=== PATIENT | female | born 1980 | race Caucasian/White ===

== ENCOUNTER 2020-07-09 14:36 | Observation (INO) | payer BC, OTHER ==
--- NOTE | 2020-07-09 14:40 | ERPHSYRPT ---
- History of Present Illness Time Seen by Provider: 07/09/20 14:40 Historian: patient Exam Limitations: no limitations Physician History: This is a 40-year-old white female with a history of left ovarian cyst in the past requiring surgical intervention and presents with left-sided abdominal pain. Patient states that she is about ready to start her menstrual period. P attrevor has nausea but no vomiting. She is also had some diarrhea in the last week. Patient states the pain was present intermittently during the last week but then yesterday and today the pain is more significant and now more constant and localized without radiation. She had no vaginal bleeding. She has no chest pain she has no shortness of breath. She has had no dysuria and no flank pain. Patient states that she is allergic to codeine but she does not recall the allergy she has to codeine. She has had intravenous narcotics in the past but she does not recall the type and she did not have any problems with that medication. Patient has had no other intra-abdominal or pelvic surgeries. Timing/Duration: week(s) (1), worse Activities at Onset: none Quality: sharpness, stabbing Abdominal Pain Onset Location: LLQ, suprapubic (Left) Pain Radiation: no radiation Severity of Pain-Max: moderate Severity of Pain-Current: moderate Modifying Factors: Improves With: nothing Associated Symptoms: diarrhea, nausea Previous symptoms: no prior history Allergies/Adverse Reactions: codeine Allergy (Unknown, Verified 07/09/20 14:48) Travel Risk - International Travel Have you traveled outside of the country in past 3 weeks: No - Coronavirus Screening Are you exhibiting any of the following symptoms?: No Close contact with a COVID-19 positive Pt in past 14-21 Days: No - Review of Systems Constitutional: No Symptoms Eyes: No Symptoms Ears, Nose, & Throat: No Symptoms Respiratory: No Symptoms Cardiac: No Symptoms Abdominal/Gastrointestinal: Abdominal Pain (Left lower quadrant/left suprapubic), Nausea, Diarrhea Genitourinary Symptoms: No Symptoms Musculoskeletal: No Symptoms Skin: No Symptoms Neurological: No Symptoms Psychological: No Symptoms Endocrine: No Symptoms Hematologic/Lymphatic: No Symptoms Immunological/Allergic: No Symptoms All Other Systems: Reviewed and Negative - Past Medical History Pertinent Past Medical History: Yes - Past Surgical History Past Surgical History: Yes - Nursing Vital Signs Nursing Vital Signs: Initial Vital Signs Temperature 98.7 F 07/09/20 14:36 Pulse Rate 92 H 07/09/20 14:36 Respiratory Rate 20 07/09/20 14:36 Blood Pressure 166/107 07/09/20 14:36 O2 Sat by Pulse Oximetry 99 07/09/20 14:36 Pain Scale Pain Intensity 8 - Physical Exam General Appearance: mild distress, alert, anxiety Eye Exam: PERRL/EOMI, eyes nml inspection Ears, Nose, Throat Exam: normal ENT inspection, moist mucous membranes Neck Exam: normal inspection, non-tender, supple, full range of motion Respiratory Exam: normal breath sounds, lungs clear, airway intact, No chest tenderness, No respiratory distress Cardiovascular Exam: regular rate/rhythm, normal heart sounds, normal peripheral pulses Gastrointestinal/Abdomen Exam: soft, normal bowel sounds, tenderness (Left lower quadrant), guarding (Left lower quadrant) Pelvic Exam: not done Rectal Exam: not done Back Exam: normal inspection, normal range of motion, No CVA tenderness, No vertebral tenderness Extremity Exam: normal inspection, normal range of motion, pelvis stable Neurologic Exam: alert, oriented x 3, cooperative, golf course starter II-XII nml as tested, normal mood/affect, nml cerebellar function, sensation nml Skin Exam: normal color, warm, dry Lymphatic Exam: No adenopathy SpO2 Interpretation: normal O2 Delivery: Room Air - Course Nursing assessment & vital signs reviewed: Yes Ordered Tests: Active Orders 24 hr Category Date Time Status IV Insertion STAT Care 07/09/20 15:00 Active ABDOMEN AND PELVIS W/0 CONTRAS [CT] Stat Exams 07/09/20 15:01 Completed AMYLASE Stat Lab 07/09/20 15:15 Completed CBC W DIFF Stat Lab 07/09/20 15:00 Completed CMP Stat Lab 07/09/20 15:15 Completed HCG,QUALITATIVE URINE Stat Lab 07/09/20 15:08 Completed LIPASE Stat Lab 07/09/20 15:15 Completed Lactic Acid Stat Lab 07/09/20 15:06 Completed UA W/RFX UR CULTURE Stat Lab 07/09/20 15:08 Completed Transfer Order Routine Transfer 07/09/20 Ordered Medication Summary Discontinued Medications Generic Name Dose Route Start Last Admin Trade Name Freq PRN Reason Stop Dose Admin Hydromorphone HCl 1 mg 07/09/20 15:00 07/09/20 15:08 Hydromorphone 1 Mg/Ml Injection IV 07/09/20 15:01 1 mg STAT ONE Administration Hydromorphone HCl Confirm 07/09/20 15:07 Hydromorphone 1 Mg/Ml Injection Administered 07/09/20 15:08 Dose 1 mg .ROUTE .STK-MED ONE Sodium Chloride 1,000 mls @ 999 mls/hr 07/09/20 15:00 07/09/20 16:04 Sodium Chloride 0.9% 1000 Ml IV 07/09/20 16:00 Infused .Q1H1M STA Infusion Sodium Chloride Confirm 07/09/20 15:07 Sodium Chloride 0.9% 1000 Ml Administered 07/09/20 15:08 Dose 1,000 mls @ ud .ROUTE .STK-MED ONE Levofloxacin 500 mg 07/09/20 16:43 07/09/20 17:31 Levofloxacin 500 Mg Tablet PO 07/09/20 16:44 500 mg STAT ONE Administration Levofloxacin Confirm 07/09/20 17:30 Levofloxacin 500 Mg Tablet Administered 07/09/20 17:31 Dose 500 mg .ROUTE .STK-MED ONE Metronidazole 500 mg 07/09/20 16:43 07/09/20 17:31 Flagyl 500 Mg PO 07/09/20 16:44 500 mg STAT ONE Administration Metronidazole Confirm 07/09/20 17:30 Flagyl 500 Mg Administered 07/09/20 17:31 Dose 500 mg .ROUTE .STK-[facility] ONE Ondansetron HCl 4 mg 07/09/20 15:00 07/09/20 15:09 Zofran 4 Mg/2 Ml Vial IV 07/09/20 15:01 4 mg STAT ONE Administration Ondansetron HCl Confirm 07/09/20 15:07 Zofran 4 Mg/2 Ml Vial Administered 07/09/20 15:08 Dose 4 mg .ROUTE .ST-[facility] ONE Lab/Rad Data: Laboratory Result Diagrams 07/09/20 15:00 07/09/20 15:15 Laboratory Results 07/09/20 07/09/20 07/09/20 Range/Units 15:15 15:08 15:08 WBC (4.0-10.5) K/mm3 RBC (4.1-5.4) M/mm3 Hgb (12.0-16.0) gm/dl Hct (35-47) % MCV (78-100) fl MCH (26-32) pg MCHC (32-36) g/dl RDW (11.5-14.0) % Plt Count (150-450) K/mm3 MPV (7.5-11.0) fl Gran % (36.0-66.0) % Eos # (Auto) (0-0.5) Absolute Lymphs (auto) (1.0-4.6) Absolute Monos (auto) (0.0-1.3) Lymphocytes % (24.0-44.0) % Monocytes % (0.0-12.0) % Eosinophils % (0.00-5.0) % Basophils % (0.0-0.4) % Absolute Granulocytes (1.4-6.9) Basophils # (0-0.4) Sodium 137 (137-145) mmol/L Potassium 3.8 (3.5-5.1) mmol/L Chloride 103 (98-107) mmol/L Carbon Dioxide 25 (22-30) mmol/L Anion Gap 12.7 (5-15) MEQ/L BUN 5 L (7-17) mg/dL Creatinine 0.68 (0.52-1.04) mg/dL Estimated GFR > 60.0 ML/MIN Glucose 95 (74-106) mg/dL Lactic Acid (0.4-2.0) Calcium 9.3 (8.4-10.2) mg/dL Total Bilirubin 0.70 (0.2-1.3) mg/dL AST 28 (14-36) U/L ALT 20 (0-35) U/L Alkaline Phosphatase 59 (38-126) U/L Serum Total Protein 7.7 (6.3-8.2) g/dL Albumin 4.4 (3.5-5.0) g/dL Amylase 55 (30-110) U/L Lipase 68 (23-300) U/L Urine Color YELLOW (YELLOW) Urine Appearance SLIGHTLY CLOUDY (CLEAR) Urine pH 5.0 (5-6) Ur Specific [place] 1.017 (1.005-1.025) Urine Protein NEGATIVE (Negative) Urine Ketones SMALL (NEGATIVE) Urine Blood MODERATE (0-5) Marcelo/ul Urine Nitrite NEGATIVE (NEGATIVE) Urine Bilirubin NEGATIVE (NEGATIVE) Urine Urobilinogen NEGATIVE (0-1) mg/dL Ur Leukocyte Esterase NEGATIVE (NEGATIVE) Urine WBC (Auto) NONE (0-5) /HPF Urine RBC (Auto) NONE (0-2) /HPF U Epithel Cells (Auto) RARE (FEW) /HPF Urine Bacteria (Auto) NONE (NEGATIVE) /HPF Urine Mucus (Auto) SLIGHT (NEGATIVE) /HPF Urine Culture Reflexed NO (NO) Urine Glucose NEGATIVE (NEGATIVE) mg/dL Urine HCG, Qual NEGATIVE (Negative) Slides for Path Review 07/09/20 07/09/20 Range/Units 15:06 15:00 WBC 22.4 H (4.0-10.5) K/mm3 RBC 5.09 (4.1-5.4) M/mm3 Hgb 15.7 (12.0-16.0) gm/dl Hct 47.6 H (35-47) % MCV 93.5 (78-100) fl MCH 30.8 (26-32) pg MCHC 33.0 (32-36) g/dl RDW 12.3 (11.5-14.0) % Plt Count 363 (150-450) K/mm3 MPV 9.0 (7.5-11.0) fl Gran % 79.7 H (36.0-66.0) % Eos # (Auto) 0.13 (0-0.5) Absolute Lymphs (auto) 1.61 (1.0-4.6) Absolute Monos (auto) 2.80 H (0.0-1.3) Lymphocytes % 7.2 L (24.0-44.0) % Monocytes % 12.5 H (0.0-12.0) % Eosinophils % 0.6 (0.00-5.0) % Basophils % 0.0 (0.0-0.4) % Absolute Granulocytes 17.82 H (1.4-6.9) Basophils # 0.01 (0-0.4) Sodium (137-145) mmol/L Potassium (3.5-5.1) mmol/L Chloride (98-107) mmol/L Carbon Dioxide (22-30) mmol/L Anion Gap (5-15) MEQ/L BUN (7-17) mg/dL Creatinine (0.52-1.04) mg/dL Estimated GFR ML/MIN Glucose (74-106) mg/dL Lactic Acid 1.0 (0.4-2.0) Calcium (8.4-10.2) mg/dL Total Bilirubin (0.2-1.3) mg/dL AST (14-36) U/L ALT (0-35) U/L Alkaline Phosphatase (38-126) U/L Serum Total Protein (6.3-8.2) g/dL Albumin (3.5-5.0) g/dL Amylase (30-110) U/L Lipase (23-300) U/L Urine Color (YELLOW) Urine Appearance (CLEAR) Urine pH (5-6) Ur Specific [place] (1.005-1.025) Urine Protein (Negative) Urine Ketones (NEGATIVE) Urine Blood (0-5) Marcelo/ul Urine Nitrite (NEGATIVE) Urine Bilirubin (NEGATIVE) Urine Urobilinogen (0-1) mg/dL Ur Leukocyte Esterase (NEGATIVE) Urine WBC (Auto) (0-5) /HPF Urine RBC (Auto) (0-2) /HPF U Epithel Cells (Auto) (FEW) /HPF Urine Bacteria (Auto) (NEGATIVE) /HPF Urine Mucus (Auto) (NEGATIVE) /HPF Urine Culture Reflexed (NO) Urine Glucose (NEGATIVE) mg/dL Urine HCG, Qual (Negative) Slides for Path Review YES - Progress Progress: improved, pain not gone completely, re-examined Progress Note: 07/09/20 17:15 CAT scan of the abdomen and pelvis shows diffuse colitis. There is no walled off fluid collection or complications. Counseled pt/family regarding: lab results, diagnosis, rad results - Departure Departure Disposition: Observation Clinical Impression: Colitis Condition: Stable Critical Care Time: No Referrals: Provider,Unknown [Family Provider] -
[2020-07-09] MEDS ORDERED: Zofran 4 MG/2 ML VIAL IV ONE (15:00)
[2020-07-09] MEDS ORDERED: Hydromorphone 1 mg/ml Injection IV ONE (15:00)
[2020-07-09] MEDS ORDERED: Sodium Chloride 0.9% 1000 ML 1,000 ML IV STA (15:00)
[2020-07-09] MEDS ORDERED: Sodium Chloride 0.9% 1000 ML 1,000 ML ONE (15:07)
[2020-07-09] MEDS ORDERED: Zofran 4 MG/2 ML VIAL ONE (15:07)
[2020-07-09] MEDS ORDERED: Hydromorphone 1 mg/ml Injection ONE (15:07)
[2020-07-09 15:17] LABS: Absolute Neutrophil Ct (ANC) 17.82 (1.4-6.9); Basophil (Absolute #) 0.01 (0-0.4); Eosinophil % 0.6 % (0.00-5.0); Eosinophil (Absolute #) 0.13 (0-0.5); Hematocrit 47.6 % (35-47); Hemoglobin 15.7 gm/dl (12.0-16.0); Lymphocyte (Absolute #) 1.61 (1.0-4.6); Lymphocytes % 7.2 % (24.0-44.0); Mean Cell Volume 93.5 fl (78-100); Mean Corpuscular Hemoglobin 30.8 pg (26-32); Monocytes % 12.5 % (0.0-12.0); Neutrophil % 79.7 % (36.0-66.0); Platelet Count 363 K/mm3 (150-450); Red Blood Count 5.09 M/mm3 (4.1-5.4); Red Cell Distribution Width 12.3 % (11.5-14.0); White Blood Count 22.4 K/mm3 (4.0-10.5)
[2020-07-09 15:25] LABS: Appearance SLIGHTLY CLOUDY (CLEAR); Bilirubin NEGATIVE (NEGATIVE); Blood MODERATE Ery/ul (0-5); Epithelial Cells RARE /HPF (FEW); Glucose NEGATIVE (NEGATIVE); Ketones SMALL (NEGATIVE); Leukocyte Esterase NEGATIVE (NEGATIVE); Mucus SLIGHT /HPF (NEGATIVE); Nitrite NEGATIVE (NEGATIVE); Protein,Urine Dip NEGATIVE (Negative); Specific Gravity 1.017 (1.005-1.025); Urobilinogen NEGATIVE mg/dL (0-1)
[2020-07-09 15:31] LABS: ALBUMIN 4.4 g/dL (3.5-5.0); ALKALINE PHOSPHATASE 59 U/L (38-126); AMYLASE 55 U/L (30-110); ANION GAP 12.7 MEQ/L (5-15); BLOOD UREA NITROGEN 5 mg/dL (7-17); CHLORIDE 103 mmol/L (98-107); Calcium 9.3 mg/dL (8.4-10.2); Carbon Dioxide 25 mmol/L (22-30); Creatinine 1 0.68 mg/dL (0.52-1.04); EST GLOMERULAR FILTRATION RATE > 60.0 ML/MIN; Glucose 95 mg/dL (74-106); LIPASE 68 U/L (23-300); Potassium 3.8 mmol/L (3.5-5.1); SGOT/AST 28 U/L (14-36); SGPT/ALT 20 U/L (0-35); SODIUM 137 mmol/L (137-145); Total Protein 7.7 g/dL (6.3-8.2)
[2020-07-09 15:53] LABS: Slide Review 1 YES
--- NOTE | 2020-07-09 16:25 | XRAY ---
Indication: Left lower quadrant pain. Multiple contiguous axial images obtained through the abdomen and pelvis without contrast as ordered. Comparison: None Lung bases demonstrates tiny left costophrenic angle calcified granuloma. No infiltrate or effusion. Heart is not enlarged. Noncontrasted stomach and bowel loops appear nonobstructed. Colon demonstrates moderate diffuse circumferential wall thickening with minimal pericolonic stranding favoring colitis. Tiny cul-de-sac fluid presumed physiologic from rupture/leaking cyst. No free air. Remaining liver, gallbladder, pancreas, spleen, adrenal glands, kidneys, ureters, bladder, uterus, and aorta appear unremarkable for noncontrast exam. Osseous structures intact. Impression: 1. Diffuse colitis. No walled off fluid collection or complications. 2. Tiny cul-de-sac physiologic fluid.
[2020-07-09] MEDS ORDERED: Levofloxacin 500 MG Tablet PO ONE (16:43)
[2020-07-09] MEDS ORDERED: Flagyl 500 MG PO ONE (16:43)
[2020-07-09] MEDS ORDERED: Flagyl 500 MG ONE (17:30)
[2020-07-09] MEDS ORDERED: Levofloxacin 500 MG Tablet ONE (17:30)
[2020-07-09] MEDS ORDERED: TYLENOL 325 MG PO PRN (18:27)
[2020-07-09] MEDS: Hydromorphone 1 mg/ml Injection IV PRN ×2 (18:33→22:11)
[2020-07-09] MEDS: Sodium Chloride 0.9% 1000 ML 1,000 ML IV SCH (18:33)
[2020-07-09] MEDS: Zofran 4 MG/2 ML VIAL IV PRN ×2 (18:43→22:12)
[2020-07-09] MEDS ORDERED: xanAX 0.5 MG PO PRN (20:02)
[2020-07-09] MEDS ORDERED: Wellbutrin SR 150 MG ONE (22:07)
[2020-07-09] MEDS: Wellbutrin XL 150 MG PO SCH (22:13)
[2020-07-10] MEDS: FLAGYL 500 MG IVPB 500 MG/100 ML BAG IV SCH ×5 (00:10→23:24)
[2020-07-10] MEDS: Hydromorphone 1 mg/ml Injection IV PRN ×4 (04:50→21:43)
[2020-07-10] MEDS: Zofran 4 MG/2 ML VIAL IV PRN ×4 (04:50→21:43)
[2020-07-10] MEDS: Sodium Chloride 0.9% 1000 ML 1,000 ML IV SCH (04:51)
[2020-07-10 05:32] LABS: Absolute Neutrophil Ct (ANC) 13.55 (1.4-6.9); BASOPHIL % 0.1 % (0.0-0.4); Basophil (Absolute #) 0.01 (0-0.4); Eosinophil (Absolute #) 0.17 (0-0.5); Hematocrit 39.9 % (35-47); Hemoglobin 12.9 gm/dl (12.0-16.0); Lymphocytes % 8.6 % (24.0-44.0); Mean Corpuscular Hemoglobin 30.7 pg (26-32); Mean Corpuscular Hgb Concent. 32.3 g/dl (32-36); Mean Platelet Volume 8.9 fl (7.5-11.0); Monocyte (Absolute #) 2.12 (0.0-1.3); Monocytes % 12.2 % (0.0-12.0); Neutrophil % 78.1 % (36.0-66.0); Platelet Count 293 K/mm3 (150-450); Red Cell Distribution Width 12.3 % (11.5-14.0); White Blood Count 17.4 K/mm3 (4.0-10.5)
[2020-07-10 06:09] LABS: ANION GAP 7.3 MEQ/L (5-15); BLOOD UREA NITROGEN 4 mg/dL (7-17); CHLORIDE 104 mmol/L (98-107); Carbon Dioxide 25 mmol/L (22-30); Creatinine 1 0.66 mg/dL (0.52-1.04); EST GLOMERULAR FILTRATION RATE > 60.0 ML/MIN; Glucose 102 mg/dL (74-106); Potassium 3.3 mmol/L (3.5-5.1); SODIUM 133 mmol/L (137-145)
[2020-07-10 06:26] LABS: Calcium 7.8 mg/dL (8.4-10.2)
--- NOTE | 2020-07-10 09:07 | PCM.HP ---
History of Present Illness - Chief Complaint Chief Complaint: Colitis History of Present Illness: is a 40 year old female who came to the ER yesterday, she has had a 1 week history of abdominal pain with diarrhea, nausea but no vomiting. Complains of headache and neck pain as well, no history of prior abd problems, had a fibroid removed but no other abd surgeries. no personal or family history of IBD. - Review of Systems Constitutional: No Fever, No Chills Respiratory: No Cough, No Short Of Breath Cardiac: No Chest Pain, No Edema, No Syncope Abdominal/Gastrointestinal: Abdominal Pain, Nausea, Diarrhea, No Vomiting Skin: No Rash Neurological: No Dizziness, No Focal Weakness, No Sensory Changes All Other Systems: Reviewed and Negative Medications & Allergies Home Medications: Home Medication List ALPRAZolam [Alprazolam] 0.5 mg PO TID PRN 07/09/20 [History Confirmed 07/09/20] Bupropion HCl Xl 150 mg [Wellbutrin XL 150 MG] 150 mg PO HS 07/09/20 [History Confirmed 07/09/20] Allergies/Adverse Reactions: Allergies Allergy/AdvReac Type Severity Reaction Status Date / Time codeine Allergy Unknown Verified 07/09/20 18:30 - Past Medical History Past Medical History: Yes Neurological History: No Pertinent History ENT History: No Pertinent History Cardiac History: No Pertinent History Respiratory History: No Pertinent History Endocrine Medical History: No Pertinent History Musculoskelatal History: No Pertinent History GI Medical History: No Pertinent History History: No Pertinent History Pyscho-Social History: Anxiety Reproductive Disorders: Fibroids - Female History Hx Last Menstrual Period: May Are you now?: No - Past Surgical History Past Surgical History: Yes Neuro Surgical History: No Pertinent History Cardiac History: No Pertinent History Respiratory Surgery: No Pertinent History GI Surgical History: No Pertinent History Genitourinary Surgical Hx: No Pertinent History Musculskeletal Surgical Hx: No Pertinent History Female Surgical History: Other Other Surgical History: left ovarian cyst removal 2019 - Social History Smoking Status: Never smoker Exposure to second hand smoke: No Alcohol: Weekly Drug Use: none - Physical Exam Vital Signs: Vital Signs - 24 hr Temp Pulse Resp BP Pulse Ox 07/10/20 07:05 98 F 83 16 130/74 96 07/10/20 04:00 98.1 F 92 H 20 129/93 97 07/10/20 00:00 98.1 F 90 18 114/68 97 07/09/20 20:00 99.4 F 90 16 147/83 98 07/09/20 19:45 99.4 F 90 16 147/83 98 07/09/20 18:27 98 07/09/20 17:40 85 18 143/92 100 07/09/20 14:36 98.7 F 92 H 20 166/107 99 General Appearance: mild distress, alert Neurologic Exam: alert, oriented x 3, cooperative Respiratory Exam: normal breath sounds, lungs clear, No respiratory distress Cardiovascular Exam: regular rate/rhythm, normal heart sounds, normal peripheral pulses Gastrointestinal/Abdomen Exam: soft, tenderness (lower midline and LLQ), No guarding, No rebound Extremity Exam: normal inspection, normal range of motion, pelvis stable Skin Exam: normal color, warm, dry, No rash Results - Labs Lab/Micro Results: Lab Results-Last 24 Hours 07/09/20 07/09/20 07/09/20 Range/Units 15:00 15:06 15:08 WBC 22.4 H (4.0-10.5) K/mm3 RBC 5.09 (4.1-5.4) M/mm3 Hgb 15.7 (12.0-16.0) gm/dl Hct 47.6 H (35-47) % MCV 93.5 (78-100) fl MCH 30.8 (26-32) pg MCHC 33.0 (32-36) g/dl RDW 12.3 (11.5-14.0) % Plt Count 363 (150-450) K/mm3 MPV 9.0 (7.5-11.0) fl Gran % 79.7 H (36.0-66.0) % Eos # (Auto) 0.13 (0-0.5) Absolute Lymphs (auto) 1.61 (1.0-4.6) Absolute Monos (auto) 2.80 H (0.0-1.3) Lymphocytes % 7.2 L (24.0-44.0) % Monocytes % 12.5 H (0.0-12.0) % Eosinophils % 0.6 (0.00-5.0) % Basophils % 0.0 (0.0-0.4) % Absolute Granulocytes 17.82 H (1.4-6.9) Basophils # 0.01 (0-0.4) Sodium (137-145) mmol/L Potassium (3.5-5.1) mmol/L Chloride (98-107) mmol/L Carbon Dioxide (22-30) mmol/L Anion Gap (5-15) MEQ/L BUN (7-17) mg/dL Creatinine (0.52-1.04) mg/dL Estimated GFR ML/MIN Glucose (74-106) mg/dL Lactic Acid 1.0 (0.4-2.0) Calcium (8.4-10.2) mg/dL Total Bilirubin (0.2-1.3) mg/dL AST (14-36) U/L ALT (0-35) U/L Alkaline Phosphatase (38-126) U/L Serum Total Protein (6.3-8.2) g/dL Albumin (3.5-5.0) g/dL Amylase (30-110) U/L Lipase (23-300) U/L Urine Color YELLOW (YELLOW) Urine Appearance SLIGHTLY CLOUDY (CLEAR) Urine pH 5.0 (5-6) Ur Specific [place] 1.017 (1.005-1.025) Urine Protein NEGATIVE (Negative) Urine Ketones SMALL (NEGATIVE) Urine Blood MODERATE (0-5) Marcelo/ul Urine Nitrite NEGATIVE (NEGATIVE) Urine Bilirubin NEGATIVE (NEGATIVE) Urine Urobilinogen NEGATIVE (0-1) mg/dL Ur Leukocyte Esterase NEGATIVE (NEGATIVE) Urine WBC (Auto) NONE (0-5) /HPF Urine RBC (Auto) NONE (0-2) /HPF U Epithel Cells (Auto) RARE (FEW) /HPF Urine Bacteria (Auto) NONE (NEGATIVE) /HPF Urine Mucus (Auto) SLIGHT (NEGATIVE) /HPF Urine Culture Reflexed NO (NO) Urine Glucose NEGATIVE (NEGATIVE) mg/dL Urine HCG, Qual (Negative) Slides for Path Review YES 07/09/20 07/09/20 07/10/20 Range/Units 15:08 15:15 05:05 WBC 17.4 H (4.0-10.5) K/mm3 RBC 4.20 (4.1-5.4) M/mm3 Hgb 12.9 (12.0-16.0) gm/dl Hct 39.9 (35-47) % MCV 95.0 (78-100) fl MCH 30.7 (26-32) pg MCHC 32.3 (32-36) g/dl RDW 12.3 (11.5-14.0) % Plt Count 293 (150-450) K/mm3 MPV 8.9 (7.5-11.0) fl Gran % 78.1 H (36.0-66.0) % Eos # (Auto) 0.17 (0-0.5) Absolute Lymphs (auto) 1.50 (1.0-4.6) Absolute Monos (auto) 2.12 H (0.0-1.3) Lymphocytes % 8.6 L (24.0-44.0) % Monocytes % 12.2 H (0.0-12.0) % Eosinophils % 1.0 (0.00-5.0) % Basophils % 0.1 (0.0-0.4) % Absolute Granulocytes 13.55 H (1.4-6.9) Basophils # 0.01 (0-0.4) Sodium 137 (137-145) mmol/L Potassium 3.8 (3.5-5.1) mmol/L Chloride 103 (98-107) mmol/L Carbon Dioxide 25 (22-30) mmol/L Anion Gap 12.7 (5-15) MEQ/L BUN 5 L (7-17) mg/dL Creatinine 0.68 (0.52-1.04) mg/dL Estimated GFR > 60.0 ML/MIN Glucose 95 (74-106) mg/dL Lactic Acid (0.4-2.0) Calcium 9.3 (8.4-10.2) mg/dL Total Bilirubin 0.70 (0.2-1.3) mg/dL AST 28 (14-36) U/L ALT 20 (0-35) U/L Alkaline Phosphatase 59 (38-126) U/L Serum Total Protein 7.7 (6.3-8.2) g/dL Albumin 4.4 (3.5-5.0) g/dL Amylase 55 (30-110) U/L Lipase 68 (23-300) U/L Urine Color (YELLOW) Urine Appearance (CLEAR) Urine pH (5-6) Ur Specific [place] (1.005-1.025) Urine Protein (Negative) Urine Ketones (NEGATIVE) Urine Blood (0-5) Marcelo/ul Urine Nitrite (NEGATIVE) Urine Bilirubin (NEGATIVE) Urine Urobilinogen (0-1) mg/dL Ur Leukocyte Esterase (NEGATIVE) Urine WBC (Auto) (0-5) /HPF Urine RBC (Auto) (0-2) /HPF U Epithel Cells (Auto) (FEW) /HPF Urine Bacteria (Auto) (NEGATIVE) /HPF Urine Mucus (Auto) (NEGATIVE) /HPF Urine Culture Reflexed (NO) Urine Glucose (NEGATIVE) mg/dL Urine HCG, Qual NEGATIVE (Negative) Slides for Path Review 07/10/20 Range/Units 05:05 WBC (4.0-10.5) K/mm3 RBC (4.1-5.4) M/mm3 Hgb (12.0-16.0) gm/dl Hct (35-47) % MCV (78-100) fl MCH (26-32) pg MCHC (32-36) g/dl RDW (11.5-14.0) % Plt Count (150-450) K/mm3 MPV (7.5-11.0) fl Gran % (36.0-66.0) % Eos # (Auto) (0-0.5) Absolute Lymphs (auto) (1.0-4.6) Absolute Monos (auto) (0.0-1.3) Lymphocytes % (24.0-44.0) % Monocytes % (0.0-12.0) % Eosinophils % (0.00-5.0) % Basophils % (0.0-0.4) % Absolute Granulocytes (1.4-6.9) Basophils # (0-0.4) Sodium 133 L (137-145) mmol/L Potassium 3.3 L (3.5-5.1) mmol/L Chloride 104 (98-107) mmol/L Carbon Dioxide 25 (22-30) mmol/L Anion Gap 7.3 (5-15) MEQ/L BUN 4 L (7-17) mg/dL Creatinine 0.66 (0.52-1.04) mg/dL Estimated GFR > 60.0 ML/MIN Glucose 102 (74-106) mg/dL Lactic Acid (0.4-2.0) Calcium 7.8 L D (8.4-10.2) mg/dL Total Bilirubin (0.2-1.3) mg/dL AST (14-36) U/L ALT (0-35) U/L Alkaline Phosphatase (38-126) U/L Serum Total Protein (6.3-8.2) g/dL Albumin (3.5-5.0) g/dL Amylase (30-110) U/L Lipase (23-300) U/L Urine Color (YELLOW) Urine Appearance (CLEAR) Urine pH (5-6) Ur Specific [place] (1.005-1.025) Urine Protein (Negative) Urine Ketones (NEGATIVE) Urine Blood (0-5) Marcelo/ul Urine Nitrite (NEGATIVE) Urine Bilirubin (NEGATIVE) Urine Urobilinogen (0-1) mg/dL Ur Leukocyte Esterase (NEGATIVE) Urine WBC (Auto) (0-5) /HPF Urine RBC (Auto) (0-2) /HPF U Epithel Cells (Auto) (FEW) /HPF Urine Bacteria (Auto) (NEGATIVE) /HPF Urine Mucus (Auto) (NEGATIVE) /HPF Urine Culture Reflexed (NO) Urine Glucose (NEGATIVE) mg/dL Urine HCG, Qual (Negative) Slides for Path Review - Radiology Impressions Radiology Exams & Impressions: Radiology Procedures Category Date Time Status ABDOMEN AND PELVIS W/0 CONTRAS [CT] Stat Exams 07/09/20 15:01 Completed Assessment/Plan (1) Colitis Current Visit: Yes Status: Acute Assessment & Plan: GI panel ordered, continue levaquin and flagyl, IV fluids and analgesia/antiemetics Code(s): K52.9 - NONINFECTIVE GASTROENTERITIS AND COLITIS, UNSPECIFIED (2) Hypokalemia Current Visit: Yes Status: Acute Code(s): E87.6 - HYPOKALEMIA
[2020-07-10] MEDS: Sodium Chloride 0.9% W/ 20 mEq KCl/LITER 1,000 ML IV SCH ×2 (10:00→21:42)
[2020-07-10] MEDS: Levofloxacin 500MG/100ML D5W 500 MG/100 ML BAG IV SCH (10:04)
[2020-07-10] MEDS: Wellbutrin XL 150 MG PO SCH (21:42)
[2020-07-11] MEDS: FLAGYL 500 MG IVPB 500 MG/100 ML BAG IV SCH ×4 (05:38→23:09)
[2020-07-11 06:22] LABS: Absolute Neutrophil Ct (ANC) 11.82 (1.4-6.9); BASOPHIL % 0.1 % (0.0-0.4); Basophil (Absolute #) 0.02 (0-0.4); Eosinophil % 1.6 % (0.00-5.0); Eosinophil (Absolute #) 0.24 (0-0.5); Hematocrit 38.8 % (35-47); Hemoglobin 12.5 gm/dl (12.0-16.0); Lymphocyte (Absolute #) 1.63 (1.0-4.6); Lymphocytes % 10.7 % (24.0-44.0); Mean Cell Volume 95.1 fl (78-100); Mean Corpuscular Hemoglobin 30.6 pg (26-32); Mean Corpuscular Hgb Concent. 32.2 g/dl (32-36); Mean Platelet Volume 8.8 fl (7.5-11.0); Monocyte (Absolute #) 1.53 (0.0-1.3); Neutrophil % 77.6 % (36.0-66.0); Platelet Count 317 K/mm3 (150-450); Red Blood Count 4.08 M/mm3 (4.1-5.4); Red Cell Distribution Width 12.1 % (11.5-14.0); White Blood Count 15.2 K/mm3 (4.0-10.5)
[2020-07-11 06:26] LABS: ALBUMIN 3.1 g/dL (3.5-5.0); ALKALINE PHOSPHATASE 44 U/L (38-126); ANION GAP 7.7 MEQ/L (5-15); CHLORIDE 106 mmol/L (98-107); Calcium 8.1 mg/dL (8.4-10.2); Carbon Dioxide 25 mmol/L (22-30); Creatinine 1 0.64 mg/dL (0.52-1.04); EST GLOMERULAR FILTRATION RATE > 60.0 ML/MIN; Glucose 82 mg/dL (74-106); MAGNESIUM 1.9 mg/dL (1.6-2.3); Potassium 3.7 mmol/L (3.5-5.1); SGOT/AST 17 U/L (14-36); SGPT/ALT 13 U/L (0-35); SODIUM 136 mmol/L (137-145); Total Protein 5.6 g/dL (6.3-8.2)
[2020-07-11 06:57] LABS: BLOOD UREA NITROGEN 2 mg/dL (7-17)
[2020-07-11] MEDS: Sodium Chloride 0.9% W/ 20 mEq KCl/LITER 1,000 ML IV SCH ×2 (07:30→17:52)
[2020-07-11] MEDS: Zofran 4 MG/2 ML VIAL IV PRN ×3 (07:30→23:09)
--- NOTE | 2020-07-11 08:38 | PCM.NOTE ---
Date and Time: 07/11/2037 Subjective Assessment: doing ok - Review of Systems Constitutional: No Fever, No Chills Eyes: No Symptoms Ears, Nose, & Throat: No Symptoms Respiratory: No Cough, No Short Of Breath Cardiac: No Chest Pain, No Edema, No Syncope Abdominal/Gastrointestinal: Abdominal Pain, No Nausea, No Vomiting, No Diarrhea Genitourinary Symptoms: No Dysuria Musculoskeletal: No Back Pain, No Neck Pain Skin: No Rash Neurological: No Dizziness, No Focal Weakness, No Sensory Changes Psychological: No Symptoms Endocrine: No Symptoms Hematologic/Lymphatic: No Symptoms Immunological/Allergic: No Symptoms Objective Exam General Appearance: no apparent distress, alert Neurologic Exam: alert, oriented x 3, cooperative, normal mood/affect, nml cerebellar function, sensation nml, No motor deficits Skin Exam: normal color, warm, dry Eye Exam: PERRL, EOMI, eyes nml inspection Ears, Nose, Throat Exam: normal ENT inspection, pharynx normal, moist mucous membranes Neck Exam: normal inspection, non-tender, supple, full range of motion Respiratory Exam: normal breath sounds, lungs clear, No respiratory distress Cardiovascular Exam: regular rate/rhythm, normal heart sounds Gastrointestinal/Abdomen Exam: soft, tenderness, No distention, No mass Extremity Exam: normal inspection, normal range of motion Back Exam: normal inspection, normal range of motion, No CVA tenderness, No vertebral tenderness Pelvic Exam: deferred Rectal Exam: deferred OBJECTIVE DATA Vital Signs: Vital Signs - 24 hr Temp Pulse Resp BP Pulse Ox 07/11/20 07:56 98.9 F 80 16 126/73 96 07/11/20 04:00 99.1 F 79 16 132/80 96 07/10/20 23:48 99 F 79 17 114/65 98 07/10/20 20:00 99.3 F 76 18 129/81 98 07/10/20 15:43 99.4 F 81 18 119/67 99 07/10/20 11:34 98.3 F 89 16 119/72 98 Pain Assessment - Last Documented Pain Intensity 2 Pain Scale Used 0-10 Pain Scale Intake and Output: Intake & Output 07/08/20 07/09/20 07/10/20 07/11/20 11:59 11:59 11:59 11:59 Intake Total 1612 5310 Balance 1612 5310 Weight 66.9 kg 66.5 kg Lab Results: Lab Results-Last 24 Hours 07/11/20 07/11/20 Range/Units 05:30 05:30 WBC 15.2 H (4.0-10.5) K/mm3 RBC 4.08 L (4.1-5.4) M/mm3 Hgb 12.5 (12.0-16.0) gm/dl Hct 38.8 (35-47) % MCV 95.1 (78-100) fl MCH 30.6 (26-32) pg MCHC 32.2 (32-36) g/dl RDW 12.1 (11.5-14.0) % Plt Count 317 (150-450) K/mm3 MPV 8.8 (7.5-11.0) fl Gran % 77.6 H (36.0-66.0) % Eos # (Auto) 0.24 (0-0.5) Absolute Lymphs (auto) 1.63 (1.0-4.6) Absolute Monos (auto) 1.53 H (0.0-1.3) Lymphocytes % 10.7 L (24.0-44.0) % Monocytes % 10.0 (0.0-12.0) % Eosinophils % 1.6 (0.00-5.0) % Basophils % 0.1 (0.0-0.4) % Absolute Granulocytes 11.82 H (1.4-6.9) Basophils # 0.02 (0-0.4) Sodium 136 L (137-145) mmol/L Potassium 3.7 (3.5-5.1) mmol/L Chloride 106 (98-107) mmol/L Carbon Dioxide 25 (22-30) mmol/L Anion Gap 7.7 (5-15) MEQ/L BUN 2 L (7-17) mg/dL Creatinine 0.64 (0.52-1.04) mg/dL Estimated GFR > 60.0 ML/MIN Glucose 82 (74-106) mg/dL Calcium 8.1 L (8.4-10.2) mg/dL Magnesium 1.9 (1.6-2.3) mg/dL Total Bilirubin 0.30 (0.2-1.3) mg/dL AST 17 (14-36) U/L ALT 13 (0-35) U/L Alkaline Phosphatase 44 (38-126) U/L Serum Total Protein 5.6 L (6.3-8.2) g/dL Albumin 3.1 L (3.5-5.0) g/dL Radiology Exams: Radiology Procedures Category Date Time Status ABDOMEN AND PELVIS W/0 CONTRAS [CT] Stat Exams 07/09/20 15:01 Completed Assessment/Plan (1) Colitis Current Visit: Yes Status: Acute Code(s): K52.9 - NONINFECTIVE G ASTROENTERITIS AND COLITIS, UNSPECIFIED (2) Hypokalemia Current Visit: Yes Status: Acute Code(s): E87.6 - HYPOKALEMIA
[2020-07-11 08:54] LABS: Slide Review 1 YES
[2020-07-11] MEDS: Levofloxacin 500MG/100ML D5W 500 MG/100 ML BAG IV SCH (09:29)
[2020-07-11] MEDS: Hydromorphone 1 mg/ml Injection IV PRN ×2 (15:47→23:10)
[2020-07-11] MEDS: Wellbutrin XL 150 MG PO SCH (22:06)
[2020-07-12] MEDS: FLAGYL 500 MG IVPB 500 MG/100 ML BAG IV SCH (04:33)
[2020-07-12] MEDS: Sodium Chloride 0.9% W/ 20 mEq KCl/LITER 1,000 ML IV SCH (04:33)
[2020-07-12 07:55] VITALS: PULSE 76
[2020-07-12] MEDS: Levofloxacin 500MG/100ML D5W 500 MG/100 ML BAG IV SCH (10:34)
[2020-07-12 11:36] VITALS: BP 122/82; O2SAT 100
--- NOTE | 2020-07-12 11:47 | PCM.DS ---
Discharge Summary Date of Admission: 07/09/20 18:23 Admitting Physician: LORNA FLORIAN Primary Care Provider: OSCAR STOCK Allergies Allergies codeine Allergy (Unknown, Verified 07/09/20 18:30) Hospital Summary - Hospital Course Hospital Course: Chief Complaint Diagnosis Colitis Allergies Allergy/AdvReac Type Severity Reaction Status Date / Time codeine Allergy Unknown Verified 07/09/20 18:30 Vital Signs (Last 24 hours) Temp Pulse Resp BP Pulse Ox 07/12/20 11:35 98.5 F 76 18 122/82 100 07/12/20 07:54 98.2 F 76 16 127/76 97 07/12/20 03:44 98.2 F 75 18 113/75 98 07/11/20 23:49 98.7 F 72 18 117/75 99 07/11/20 19:52 98.6 F 75 17 120/75 98 07/11/20 16:00 98.2 F 79 18 122/82 97 Home Medications Medication Instructions Recorded Confirmed Last Taken Type ALPRAZolam [Alprazolam] 0.5 mg PO TID PRN 07/09/20 07/09/20 07/08/20 History Bupropion HCl Xl 150 mg 150 mg PO HS 07/09/20 07/09/20 07/08/20 History [Wellbutrin XL 150 MG] Current Medications Generic Name Dose Route Start Last Admin Trade Name Freq PRN Reason Stop Dose Admin Acetaminophen 650 mg 07/09/20 18:27 07/11/20 11:40 Tylenol 325 Mg PO 08/08/20 18:26 650 mg Q4H PRN PRN Administration PAIN, FEVER, HEADACHE Alprazolam 0.5 mg 07/09/20 20:02 Xanax 0.5 Mg PO 08/08/20 20:01 TID PRN PRN ANXIETY Bupropion HCl 150 mg 07/09/20 22:00 07/11/20 22:06 Wellbutrin Xl 150 Mg PO 08/08/20 21:59 150 mg QHS OLIVA Administration Hydromorphone HCl 1 mg 07/09/20 18:27 07/11/20 23:10 Hydromorphone 1 Mg/Ml Injection IV 07/14/20 18:26 1 mg Q4H PRN PRN Administration PAIN Metronidazole 500 mg in 100 mls @ 200 mls/hr 07/10/20 00:00 07/12/20 04:33 Flagyl 500 Mg Ivpb IV 08/09/20 00:00 200 mls/hr Q6HT OLIVA Administration Levofloxacin/Dextrose 500 mg in 100 mls @ 100 mls/hr 07/10/20 10:00 07/12/20 10:34 Levofloxacin 500mg/100ml D5w IV 08/09/20 09:59 100 mls/hr Q24H10 OLIVA Administration Potassium Chloride/Sodium Chloride 1,000 mls @ 100 mls/hr 07/10/20 09:15 07/12/20 04:33 Sodium Chloride 0.9% W/ 20 Meq Kcl/Liter IV 08/09/20 09:14 100 mls/hr .Q10H OLIVA Administration Ondansetron HCl 4 mg 07/10/20 09:09 07/11/20 23:09 Zofran 4 Mg/2 Ml Vial IV 08/09/20 09:08 4 mg Q4H PRN PRN Administration NAUSEA/VOMITING Discontinued Medications Generic Name Dose Route Start Last Admin Trade Name Freq PRN Reason Stop Dose Admin Bupropion HCl Confirm 07/09/20 22:07 Wellbutrin Sr 150 Mg Administered 07/09/20 22:08 Dose 150 mg .ROUTE .STK-MED ONE Hydromorphone HCl 1 mg 07/09/20 15:00 07/09/20 15:08 Hydromorphone 1 Mg/Ml Injection IV 07/09/20 15:01 1 mg STAT ONE Administration Hydromorphone HCl Confirm 07/09/20 15:07 Hydromorphone 1 Mg/Ml Injection Administered 07/09/20 15:08 Dose 1 mg .ROUTE .STK-MED ONE Sodium Chloride 1,000 mls @ 999 mls/hr 07/09/20 15:00 07/09/20 16:04 Sodium Chloride 0.9% 1000 Ml IV 07/09/20 16:00 Infused .Q1H1M STA Infusion Sodium Chloride Confirm 07/09/20 15:07 Sodium Chloride 0.9% 1000 Ml Administered 07/09/20 15:08 Dose 1,000 mls @ ud .ROUTE .STK-MED ONE Sodium Chloride 1,000 mls @ 100 mls/hr 07/09/20 18:27 07/10/20 04:51 Sodium Chloride 0.9% 1000 Ml IV 08/08/20 18:26 100 mls/hr .Q10H OLIVA Administration Levofloxacin 500 mg 07/09/20 16:43 07/09/20 17:31 Levofloxacin 500 Mg Tablet PO 07/09/20 16:44 500 mg STAT ONE Administration Levofloxacin Confirm 07/09/20 17:30 Levofloxacin 500 Mg Tablet Administered 07/09/20 17:31 Dose 500 mg .ROUTE .STK-MED ONE Metronidazole 500 mg 07/09/20 16:43 07/09/20 17:31 Flagyl 500 Mg PO 07/09/20 16:44 500 mg STAT ONE Administration Metronidazole Confirm 07/09/20 17:30 Flagyl 500 Mg Administered 07/09/20 17:31 Dose 500 mg .ROUTE .STK-MED ONE Ondansetron HCl 4 mg 07/09/20 15:00 07/09/20 15:09 Zofran 4 Mg/2 Ml Vial IV 07/09/20 15:01 4 mg STAT ONE Administration Ondansetron HCl Confirm 07/09/20 15:07 Zofran 4 Mg/2 Ml Vial Administered 07/09/20 15:08 Dose 4 mg .ROUTE .STK-MED ONE Ondansetron HCl 4 mg 07/09/20 18:27 07/10/20 08:50 Zofran 4 Mg/2 Ml Vial IV 08/08/20 18:26 4 mg Q6H PRN PRN Administration NAUSEA/VOMITING Intake & Output (Last 24 hours) 07/09/20 07/10/20 07/11/20 07/12/20 11:59 11:59 11:59 11:59 Intake Total 1612 4860 3375 Balance 1612 5550 3374 Weight 66.9 kg 66.5 kg 66.4 kg Orders (Last 24 hours) Category Date Time Status [place] Diet Diet 07/12/20 Lunch Active - Vitals & Intake/Output Vital Signs: Vital Signs Temperature 98.5 F 07/12/20 11:35 Pulse Rate 76 07/12/20 11:35 Respiratory Rate 18 07/12/20 11:35 Blood Pressure 122/82 07/12/20 11:35 O2 Sat by Pulse Oximetry 100 07/12/20 11:35 Intake & Output: Intake & Output 07/09/20 07/10/20 07/11/20 07/12/20 11:59 11:59 11:59 11:59 Intake Total 1612 5550 3375 Balance 1612 5550 3375 Weight 66.9 kg 66.5 kg 66.4 kg - Lab Result Diagrams: 07/11/20 05:30 07/11/20 05:30 Discharge Exam General Appearance: no apparent distress, alert Neurologic Exam: alert, oriented x 3, cooperative, normal mood/affect, nml cerebellar function, sensation nml, No motor deficits Eye Exam: PERRL, EOMI, eyes nml inspection Ears, Nose, Throat Exam: normal ENT inspection, pharynx normal, moist mucous membranes Neck Exam: normal inspection, non-tender, supple, full range of motion Respiratory Exam: normal breath sounds, lungs clear, No respiratory distress Cardiovascular Exam: regular rate/rhythm, normal heart sounds Gastrointestinal/Abdomen Exam: soft, No tenderness, No mass Pelvic Exam: deferred Rectal Exam: deferred Back Exam: normal inspection, normal range of motion, No CVA tenderness, No vertebral tenderness Extremity Exam: normal inspection, normal range of motion Skin Exam: normal color, warm, dry Final Diagnosis/Problem List - Final Discharge Diagnosis/Problem (1) Colitis Current Visit: Yes Status: Acute Priority: High Assessment & Plan: Chief Complaint Diagnosis Colitis Allergies Allergy/AdvReac Type Severity Reaction Status Date / Time codeine Allergy Unknown Verified 07/09/20 18:30 Vital Signs (Last 24 hours) Temp Pulse Resp BP Pulse Ox 07/12/20 11:35 98.5 F 76 18 122/82 100 07/12/20 07:54 98.2 F 76 16 127/76 97 07/12/20 03:44 98.2 F 75 18 113/75 98 07/11/20 23:49 98.7 F 72 18 117/75 99 07/11/20 19:52 98.6 F 75 17 120/75 98 07/11/20 16:00 98.2 F 79 18 122/82 97 Home Medications Medication Instructions Recorded Confirmed Last Taken Type ALPRAZolam [Alprazolam] 0.5 mg PO TID PRN 07/09/20 07/09/20 07/08/20 History Bupropion HCl Xl 150 mg 150 mg PO HS 07/09/20 07/09/20 07/08/20 History [Wellbutrin XL 150 MG] Current Medications Generic Name Dose Route Start Last Admin Trade Name Freq PRN Reason Stop Dose Admin Acetaminophen 650 mg 07/09/20 18:27 07/11/20 11:40 Tylenol 325 Mg PO 08/08/20 18:26 650 mg Q4H PRN PRN Administration PAIN, FEVER, HEADACHE Alprazolam 0.5 mg 07/09/20 20:02 Xanax 0.5 Mg PO 08/08/20 20:01 TID PRN PRN ANXIETY Bupropion HCl 150 mg 07/09/20 22:00 07/11/20 22:06 Wellbutrin Xl 150 Mg PO 08/08/20 21:59 150 mg QHS OLIVA Administration Hydromorphone HCl 1 mg 07/09/20 18:27 07/11/20 23:10 Hydromorphone 1 Mg/Ml Injection IV 07/14/20 18:26 1 mg Q4H PRN PRN Administration PAIN Metronidazole 500 mg in 100 mls @ 200 mls/hr 07/10/20 00:00 07/12/20 04:33 Flagyl 500 Mg Ivpb IV 08/09/20 00:00 200 mls/hr Q6HT OLIVA Administration Levofloxacin/Dextrose 500 mg in 100 mls @ 100 mls/hr 07/10/20 10:00 07/12/20 10:34 Levofloxacin 500mg/100ml D5w IV 08/09/20 09:59 100 mls/hr Q24H10 OLIVA Administration Potassium Chloride/Sodium Chloride 1,000 mls @ 100 mls/hr 07/10/20 09:15 07/12/20 04:33 Sodium Chloride 0.9% W/ 20 Meq Kcl/Liter IV 08/09/20 09:14 100 mls/hr .Q10H OLIVA Administration Ondansetron HCl 4 mg 07/10/20 09:09 07/11/20 23:09 Zofran 4 Mg/2 Ml Vial IV 08/09/20 09:08 4 mg Q4H PRN PRN Administration NAUSEA/VOMITING Discontinued Medications Generic Name Dose Route Start Last Admin Trade Name Corky PRN Reason Stop Dose Admin Bupropion HCl Confirm 07/09/20 22:07 Wellbutrin Sr 150 Mg Administered 07/09/20 22:08 Dose 150 mg .ROUTE .STK-MED ONE Hydromorphone HCl 1 mg 07/09/20 15:00 07/09/20 15:08 Hydromorphone 1 Mg/Ml Injection IV 07/09/20 15:01 1 mg STAT ONE Administration Hydromorphone HCl Confirm 07/09/20 15:07 Hydromorphone 1 Mg/Ml Injection Administered 07/09/20 15:08 Dose 1 mg .ROUTE .STK-MED ONE Sodium Chloride 1,000 mls @ 999 mls/hr 07/09/20 15:00 07/09/20 16:04 Sodium Chloride 0.9% 1000 Ml IV 07/09/20 16:00 Infused .Q1H1M STA Infusion Sodium Chloride Confirm 07/09/20 15:07 Sodium Chloride 0.9% 1000 Ml Administered 07/09/20 15:08 Dose 1,000 mls @ ud .ROUTE .STK-MED ONE Sodium Chloride 1,000 mls @ 100 mls/hr 07/09/20 18:27 07/10/20 04:51 Sodium Chloride 0.9% 1000 Ml IV 08/08/20 18:26 100 mls/hr .Q10H OLIVA Administration Levofloxacin 500 mg 07/09/20 16:43 07/09/20 17:31 Levofloxacin 500 Mg Tablet PO 07/09/20 16:44 500 mg STAT ONE Administration Levofloxacin Confirm 07/09/20 17:30 Levofloxacin 500 Mg Tablet Administered 07/09/20 17:31 Dose 500 mg .ROUTE .STK-MED ONE Metronidazole 500 mg 07/09/20 16:43 07/09/20 17:31 Flagyl 500 Mg PO 07/09/20 16:44 500 mg STAT ONE Administration Metronidazole Confirm 07/09/20 17:30 Flagyl 500 Mg Administered 07/09/20 17:31 Dose 500 mg .ROUTE .STK-MED ONE Ondansetron HCl 4 mg 07/09/20 15:00 07/09/20 15:09 Zofran 4 Mg/2 Ml Vial IV 07/09/20 15:01 4 mg STAT ONE Administration Ondansetron HCl Confirm 07/09/20 15:07 Zofran 4 Mg/2 Ml Vial Administered 07/09/20 15:08 Dose 4 mg .ROUTE .STK-MED ONE Ondansetron HCl 4 mg 07/09/20 18:27 07/10/20 08:50 Zofran 4 Mg/2 Ml Vial IV 08/08/20 18:26 4 mg Q6H PRN PRN Administration NAUSEA/VOMITING Intake & Output (Last 24 hours) 07/09/20 07/10/20 07/11/20 07/12/20 11:59 11:59 11:59 11:59 Intake Total 1612 5559 3377 Balance 1612 5550 3371 Weight 66.9 kg 66.5 kg 66.4 kg Orders (Last 24 hours) Category Date Time Status [place] Diet Diet 07/12/20 Lunch Active Code(s): K52.9 - NONINFECTIVE GASTROENTERITIS AND COLITIS, UNSPECIFIED (2) Hypokalemia Current Visit: Yes Status: Resolved Code(s): E87.6 - HYPOKALEMIA - Discharge Discharge Date: 07/12/20 Disposition: Home, Self-Care Condition: Stable Prescriptions: New Metronidazole 500 mg [Flagyl 500 MG] 500 mg PO TID #21 tablet Continue ALPRAZolam [Alprazolam] 0.5 mg PO TID PRN Bupropion HCl Xl 150 mg [Wellbutrin XL 150 MG] 150 mg PO HS Follow up with: LORNA FLORIAN MD [ACTIVE STAFF] - 5 Days
== END 2020-07-12 13:30 | disposition home or self-care (01) ==
LOC: ED 14:36 → MED SURG 18:23
PROVIDERS: ADMIT Family Medicine; ATTEND Family Medicine
DX: K52.9 Noninfective gastroenteritis and colitis, unspecified (principal); E87.6 Hypokalemia; R51.9 Headache, unspecified; M54.2 Cervicalgia; R11.0 Nausea; Z79.899 Other long term (current) drug therapy
CPT/HCPCS: 0097U; 36415; 74176; 80048; 80053; 81001; 82150; 83605; 83690; 83735; 84703; 85025; 96374; 96375; 99000; 99285; G0378; J1170; J1956; J2405; A9270-GY